=== PATIENT | female | born 1935 | race Caucasian/White ===

== ENCOUNTER 2016-07-14 14:40 | Inpatient (IN) | payer MEDICARE ==
[~2016-07-14] VITALS: Ht 154.9 cm; Wt 119.0 kg
[2016-07-15] MEDS ORDERED: CART180C PO (11:42)
[2016-07-15] MEDS ORDERED: ROSU1TAB8 PO (11:43)
[2016-07-15] MEDS ORDERED: LEVO25TA4 PO (11:43)
[2016-07-15] MEDS ORDERED: LATA0.002 EACH EYE (11:43)
[2016-07-15] MEDS ORDERED: TIMO0.5S30 LEFT EYE (11:43)
[2016-07-15] MEDS ORDERED: LISI10TA3 PO (11:43)
[2016-07-15] MEDS ORDERED: ASPI1TAB69 PO (11:43)
[2016-07-15] MEDS ORDERED: NITR0.4S SL (11:43)
[2016-07-25] MEDS ORDERED: LACTATED RINGER'S 1000 ML INJ 2,000 ML IV ONE (11:14)
[2016-07-25] MEDS ORDERED: SODIUM CHLOR 0.9% 250 ML INJ 250 ML IV ONE (11:14)
[2016-07-25] MEDS ORDERED: PHENYLEPH/NS 1000 MCG/10 ML SYR IV ONE (11:14)
[2016-07-25] MEDS ORDERED: PROPOFOL 200 MG/20 ML AMP IV ONE (11:14)
[2016-07-25] MEDS ORDERED: ePHEDrine/NS 25 MG/5 ML SYR IV ONE (11:14)
[2016-07-25] MEDS ORDERED: ceFAZolin INJ 1,000 MG VIAL ONE (11:44)
[2016-07-25] MEDS ORDERED: METOPROLOL TARTRATE 25 MG TAB PO PRN (11:45)
[2016-07-25] MEDS ORDERED: INSULIN HUMAN REGULAR 1,000 UNITS/10 ML VIAL SQ PRN (11:45)
[2016-07-25 12:00] VITALS: BP 144/66; PULSE 72; RESP 20; TEMP 97.7; O2SAT 98
[2016-07-25] MEDS: CHLORHEXIDINE GLUCONATE 4% SOLN 120 ML BTL TOP SCH (12:00)
[2016-07-25] MEDS ORDERED: ACETAMINOPHEN 1000 MG/100 ML VIAL IV ONE (12:00)
[2016-07-25] MEDS ORDERED: VANCOMYCIN 1000 MG/NS 250 ML (for <70 kg) IV SCH ×2 (12:00)
[2016-07-25] MEDS ORDERED: SODIUM CHLORID 0.9% 500 ML IV SCH (12:00)
[2016-07-25] MEDS ORDERED: LACTATED RINGER'S 1000 ML IV SCH (12:00)
[2016-07-25] MEDS ORDERED: CLINDAMYCIN 900 MG/NS 100 ML IV SCH ×2 (12:45)
[2016-07-25] MEDS ORDERED: SODIUM CHLORIDE 0.9% INJ 100 ML ONE (12:52)
[2016-07-25] MEDS ORDERED: GENTAMICIN SULFATE 80 MG/2 ML VIAL ONE (13:26)
[2016-07-25] MEDS ORDERED: MIDAZOLAM HCL 2 MG/2 ML VIAL ONE (13:39)
--- NOTE | 2016-07-25 16:52 | PD.OP ---
cc: Lee Gillespie MD Operative Report Date of Surgery: Jul 25, 2016 Preoperative Diagnosis: (1) Osteoarthritis of left hip Postoperative Diagnosis: (1) Osteoarthritis of left hip Procedure: Left total hip arthroplasty Implants used: Biomet Bi-Metric size 12 press-fit femoral component with a Agusto 52 press-fit acetabular shell and a 36 ceramic head with a standard neck length Anesthesia: Spinal Surgeon: Lee Gillespie Accountant Controller(s): Kristy De León PA-C ([place]) The surgical procedure was assisted by my physician's boiler assistant operator. Her presence was necessary throughout the case for manipulation and positioning of the surgical extremity. My PA was assisting me throughout the duration of this procedure. The skill set of the physician boiler assistant operator was medically necessary to complete this procedure. During the surgical case the surgical consultant was working at the back table and the physician boiler assistant operator was directly assisting me. Operation and Findings: Indications: This 81-year-old female has a long history of left hip and knee pain. It has been progressive. Her pain is primarily in the groin with radiation to the knee. X-rays reveal advanced osteoarthritis with [id number] opposition, subchondral sclerosis, subchondral cyst formation and osteophytes. She requires use of a cane or walker for ambulation. She is been unresponsive to nonoperative measures including attempts at weight loss, medication, and pool therapy. It is felt that her knee pain is referred from the hip. Given the alternatives of the treatment she presents for total hip arthroplasty. Procedure and findings: The patient was taken to the operative suite and after undergoing an adequate level of general anesthesia was placed in the lateral decubitus position on the operating table. Preoperative antibiotics consisted of vancomycin 1 g IV and clindamycin 900 mg IV. The left lower extremity was then prepped and draped in usual sterile fashion with alcohol and Hibiclens. A standard posterior lateral approach the hip was made with an incision centered over the greater trochanter. This was carried down to skin and subcutaneous tense tissue with a knife. Hemostasis was obtained with cautery. The iliotibial band was identified distally and the gluteus marcos fascia proximally. These were split longitudinally. This brought the greater trochanteric bursa into view which was partially excised. The short external rotators were released from the posterior aspect of the femur up to the level of the piriformis. This was tagged. The sciatic nerve was palpable in the depths of the wound and avoided. A T capsulotomy incision was made. A joint effusion was evacuated. The hip was then easily dislocated. She was noted to be marked degenerative changes with total obliteration of the articular cartilage. A neck cut was made utilizing an osteotomy guide. The head was then sized on the back table. The labrum was excised. Soft tissue was removed from the floor of the acetabulum. The acetabulum was then sequentially reamed up to a size 51 in approximately 45 of abduction and 25 of anteversion. A size 52 trial was seated and gave good fit and fill. This component was therefore selected. The wound was thoroughly irrigated with pulse lavage. The 52 acetabular cup was then impacted into place. It was recognized that the shell that was provided did not match the liner and therefore the cup was removed and the correct cup seated. The liner was then seated. Attention was then focused on the proximal femur which was sequentially reamed and broached up to a size 12. With the size [address] trial reductions were completed. The standard neck length gave the best range of motion and stability with equalization of limb lengths. These components were therefore selected. The wound was again thoroughly irrigated with pulse lavage. The size 12 Bi-Metric stem was then impacted in the place. The 36 ceramic head was then impacted onto the proximal aspect of the stem with a Huggins taper fit. Reduction was then accomplished and good range of motion, stability and equalization of limb lengths again noted. The wound was again thoroughly irrigated with pulse lavage. Hemovac drains were left in place. Incision was closed in layers utilizing #1 Tycron and #1 Vicryl on the posterior capsule, #1 Vicryl on the iliotibial band and gluteus Marcos fascia, 0 Vicryl suture on the deep tissue, 2-0 Vicryl suture and the subcutaneous tense tissue and fredis on the skin. Sterile dressings were applied, the patient was placed into an abduction pillow, awakened and transferred to the hospital bed. He was then taken to the recovery room in stable condition. Estimated blood loss: 250 cc Complications: None Lee Gillespie MD Jul 25, 2016 16:52
[2016-07-25] MEDS ORDERED: SODIUM CHLORIDE 0.9% FLUSH 5 ML FLUSH IVF PRN (17:00)
[2016-07-25] MEDS ORDERED: NALOXONE HCL 0.4 MG/ML AMP IV PRN (17:00)
[2016-07-25] MEDS ORDERED: BISACODYL 10 MG SUPP PR PRN (17:00)
[2016-07-25] MEDS ORDERED: diphenhydrAMINE HCL 25 MG CAP PO PRN (17:00)
[2016-07-25] MEDS ORDERED: ONDANSETRON HCL 4 MG/2 ML VIAL IVP PRN (17:00)
[2016-07-25] MEDS ORDERED: oxyCODONE/ACETAMINOPHEN 5 MG/325 MG TAB PO PRN (17:00)
[2016-07-25] MEDS ORDERED: MORPHINE SULFATE 30 MG/30 ML PCA IV SCH (17:00)
[2016-07-25] MEDS ORDERED: ALUMINUM/MAGNESIUM/SIMETH 30 ML CUP PO PRN (17:00)
[2016-07-25] MEDS ORDERED: MISCELLANEOUS NURSING INFORMATION XX PRN (17:00)
[2016-07-25] MEDS ORDERED: TEMAZEPAM 15 MG CAP PO PRN (17:00)
[2016-07-25] MEDS ORDERED: NITROGLYCERIN 0.4 MG SL 25 TABS/BTL SL PRN (17:00)
[2016-07-25] MEDS ORDERED: ACETAMINOPHEN 325 MG TAB PO PRN (17:00)
[2016-07-25] MEDS ORDERED: Post-op Orders (for Pharmacy) MISC XX ONE (17:00)
[2016-07-25] MEDS ORDERED: MORPHINE SULFATE 8 MG/ML INJ IV PUSH PRN (17:00)
[2016-07-25] MEDS ORDERED: POVIDONE IODINE 10% SOLN 118 ML BOTTLE TOPICAL PRN (17:00)
[2016-07-25] MEDS ORDERED: MISCELLANEOUS PHARMACY INFORMATION XX ONE (17:00)
[2016-07-25] MEDS ORDERED: DO NOT ADM ANY ANTICOAGULANT DRUGS XX PRN (17:03)
[2016-07-25] MEDS ORDERED: *morphine SULFATE 8 MG/ML PERIprocedure ONLY ONE (17:06)
[2016-07-25] MEDS ORDERED: ePHEDrine/NS 25 MG/5 ML SYR ONE (17:48)
--- NOTE | 2016-07-25 17:51 | RADRPT ---
EXAM DATE/TIME: 07/25/2016 17:14 [facility] COMPARISON: No previous studies available for comparison. INDICATIONS : Post op left hip arthroplasty. MEDICAL HISTORY : None. SURGICAL HISTORY : None. ENCOUNTER: Initial ACUITY: 1 day PAIN SCORE: Non-responsive. LOCATION: Left hip FINDINGS: Examination of the hip demonstrates total hip arthroplasty in satisfactory position. The alignment is anatomic. CONCLUSION: Post surgical changes as above. Octavio Esqueda MD on July 25, 2016 at 17:49 Board Certified Radiologist. This report was verified electronically.
--- NOTE | 2016-07-25 18:28 | PD.CONS ---
HPI Service [facility] Hospitalists Consult Requested By Dr. Gillespie Reason for Consult medical management Primary Care Physician Non-Staff Diagnoses: (1) Osteoarthritis of left hip (2) Hypotension History of Present Illness 81 y/o white female seen in post op still somewhat lethargic from anesthesia and is running low blood pressure on IV fluids alert and offers no compliants. Patient has history of hypertension,cad, hypothyroid ,hyperlipidemia. Patient for medical management. Review of Systems ROS Limitations: Altered Mental Status (due to post op) Past Family Social History Past Medical History cad,hypothyroid,hypertension,hyperlipidemia Past Surgical History left THR Reported Medications cardia,eye drops,levothyroxine,lisinopril,statin Allergies: Coded Allergies: Penicillin (Verified Allergy, Severe, Anaphylaxis, 07/25/16) Social History NS,ND Physical Exam Vital Signs Vital Signs Date Time Temp Pulse Resp B/P Pulse Ox O2 Delivery O2 Flow Rate FiO2 07/25/16 12:00 97.7 72 20 144/66 98 Physical Exam GENERAL: This is a well-nourished, well-developed patient, in no apparent distress. SKIN: No rashes, ecchymoses or lesions. Cool and dry. HEAD: Atraumatic. Normocephalic. No temporal or scalp tenderness. EYES: Pupils equal round and reactive. Extraocular motions intact. No scleral icterus. No injection or drainage. ENT: Nose without bleeding, purulent drainage or septal hematoma. Throat without erythema, tonsillar hypertrophy or exudate. Uvula midline. Airway patent. NECK: Trachea midline. No JVD or lymphadenopathy. Supple, nontender, no meningeal signs. CARDIOVASCULAR: Regular rate and rhythm without murmurs, gallops, or rubs. RESPIRATORY: Clear to auscultation. Breath sounds equal bilaterally. No wheezes , rales, or rhonchi. GASTROINTESTINAL: Abdomen soft, non-tender, nondistended. No hepato-splenomegaly , or palpable masses. No guarding. MUSCULOSKELETAL: S/P left total hip no edema NEUROLOGICAL: Awake and alert improving Cranial nerves II through XII intact. Motor and sensory grossly within normal limits. Five out of 5 muscle strength in all muscle groups. Normal speech developing. Laboratory Laboratory Tests Test 07/25/16 11:30 Blood Type A POSITIVE Antibody Screen NEGATIVE Blood Bank Comment Course post op on IV fluids and improving Assessment and Plan Problem List: (1) Osteoarthritis of left hip Status: Acute Plan: S/p surgery plan as per ortho , (2) Hypotension Status: Acute Plan: related to anesthesia and is improving with IV fluid once stable can be restarted on hypertensive meds lisinopril and cardia . Placed on parameters Assessment and Plan as above medical will follow Code Status full Discussed Condition With patient Cesar Florez MD Jul 25, 2016 18:28
[2016-07-25] MEDS ORDERED: ePHEDrine/NS 25 MG/5 ML SYR IV PUSH ONE ×2 (18:30→20:15)
[2016-07-25] MEDS ORDERED: *RESP: ALBUTEROL 2.5 MG/3 ML NEB (PRN) PERIprocedural Use ONLY NEB ONE (18:33)
[2016-07-25] MEDS: LACTATED RINGER'S 1000 ML INJ 1,000 ML IV SCH (18:56)
[2016-07-25 19:45] LABS: AUTOMATED NEUTROPHIL # 14.7 TH/MM3 (1.8-7.7); BASOPHIL # 0.1 TH/MM3 (0-0.2); BASOPHIL % 0.3 % (0.0-2.0); EOSINOPHIL # 0.1 TH/MM3 (0-0.4); EOSINOPHIL % 0.7 % (0.0-4.0); HEMATOCRIT 33.7 % (35.0-46.0); HEMO FLAGS DIFF FINAL; LYMPH % 9.1 % (9.0-44.0); LYMPHOCYTE # 1.6 TH/MM3 (1.0-4.8); MEAN CELL VOLUME 85.6 FL (80.0-100.0); MEAN CORPUSCULAR HEMOGLOBIN 27.8 PG (27.0-34.0); MEAN CORPUSCULAR HGB CONC 32.5 % (32.0-36.0); MONO % 4.7 % (0.0-8.0); NEUT % 85.2 % (16.0-70.0); PLATELET COUNT 177 TH/MM3 (150-450); RED BLOOD COUNT 3.93 MIL/MM3 (4.00-5.30); RED CELL DISTRIBUTION WIDTH 15.3 % (11.6-17.2); WHITE BLOOD COUNT 17.3 TH/MM3 (4.0-11.0)
[2016-07-25] MEDS: CLINDAMYCIN INJ 900 MG in SODIUM CHLORIDE 0.9% INJ 100 ML IV SCH (20:00)
[2016-07-25] MEDS: LATANOPROST 0.005% OPHT SOLN 2.5 ML BTL EACH EYE SCH (21:00)
[2016-07-25 22:00] VITALS: BP 113/48; PULSE 75; RESP 17; TEMP 96.2; O2SAT 100
[2016-07-26] VITALS (8 sets, daily range): BP systolic 114–143; BP diastolic 46–73; PULSE 73–95; RESP 16–18; TEMP 96.3–100.8; O2SAT 94–100
[2016-07-26] MEDS: CLINDAMYCIN INJ 900 MG in SODIUM CHLORIDE 0.9% INJ 100 ML IV SCH ×2 (04:00→13:53)
[2016-07-26 05:10] LABS: HEMATOCRIT 32.3 % (35.0-46.0); REVIEW FLAG FINAL
[2016-07-26] MEDS: PCA - TOTAL MG MORPHINE DELIVERED PER SHIFT SCH ×3 (06:00→22:00)
--- NOTE | 2016-07-26 06:44 | RADRPT ---
EXAM DATE/TIME: 07/26/2016 05:16 [facility] COMPARISON: No previous studies available for comparison. INDICATIONS : Short of breath MEDICAL HISTORY : Cardiovascular disease. SURGICAL HISTORY : Coronary artery stent. hip replacement ENCOUNTER: Subsequent ACUITY: 2 days PAIN SCORE: 0/10 LOCATION: Bilateral chest FINDINGS: No consolidation or effusion. Cardiomegaly. Aortic calcification. Degenerative changes of the spine. CONCLUSION: No acute disease. Demian Chow MD on July 26, 2016 at 6:43 Board Certified Radiologist. This report was verified electronically.
[2016-07-26] MEDS: DILTIAZEM-CD 180 MG CAP ER PO SCH (09:00)
[2016-07-26] MEDS: LISINOPRIL 10 MG TAB PO SCH (09:00)
[2016-07-26] MEDS: LEVOTHYROXINE SODIUM 25 MCG TAB PO SCH (10:27)
[2016-07-26] MEDS: SODIUM CHLORIDE 0.9% FLUSH 5 ML FLUSH IVF SCH ×2 (10:30→22:15)
[2016-07-26] MEDS: ATORVASTATIN 40 MG TAB PO SCH (10:31)
--- NOTE | 2016-07-26 12:51 | PD.ORT.PN ---
Subjective Post Op Day #: 1 Subjective Remarks Pt laying comfortably in bed, awake and answering questions appropriately. She admits her left hip pain is well under control and admits to occasional 'burning '. She admits she slept well. No other complaints noted. Objective Vitals Vital Signs Date Time Temp Pulse Resp B/P Pulse Ox O2 Delivery O2 Flow Rate FiO2 07/26/16 12:00 98.4 79 18 127/47 98 07/26/16 08:00 98.0 84 18 120/51 100 07/26/16 06:00 18 07/26/16 04:00 97.8 89 16 124/59 100 07/26/16 00:00 96.3 73 17 114/53 99 07/25/16 22:00 96.2 75 17 113/48 100 07/25/16 20:30 97.4 69 15 111/58 98 Nasal Cannula 3 07/25/16 20:15 71 15 114/56 98 Nasal Cannula 3 07/25/16 20:00 71 16 118/55 98 Nasal Cannula 3 07/25/16 19:45 74 15 100/50 98 Nasal Cannula 3 07/25/16 19:30 85 15 122/58 98 Nasal Cannula 3 07/25/16 19:28 73 16 128/55 98 Nasal Cannula 3 07/25/16 19:18 65 16 95/49 99 Nasal Cannula 3 07/25/16 19:15 61 15 73/46 99 Nasal Cannula 3 07/25/16 19:00 67 15 95/49 99 Nasal Cannula 3 07/25/16 18:57 15 07/25/16 18:45 65 15 95/56 99 Nasal Cannula 3 07/25/16 18:30 75 15 100/48 97 Nasal Cannula 3 07/25/16 18:15 67 15 112/55 97 Nasal Cannula 3 07/25/16 18:00 69 16 109/50 97 Nasal Cannula 3 07/25/16 17:55 75 14 125/54 98 Nasal Cannula 3 07/25/16 17:51 63 14 108/53 98 Nasal Cannula 3 07/25/16 17:48 63 15 96/51 98 Nasal Cannula 3 07/25/16 17:45 62 16 73/25 96 Nasal Cannula 3 07/25/16 17:30 62 16 100/52 96 Nasal Cannula 3 07/25/16 17:15 59 14 159/107 96 Nasal Cannula 3 07/25/16 17:00 97.4 75 14 159/123 96 Nasal Cannula 3 I/O 07/25/16 07/25/16 07/25/16 07/26/16 07/26/16 07/26/16 07:00 15:00 23:00 07:00 15:00 23:00 Intake Total 3200 ml 240 ml Output Total 905 ml 550 ml Balance 2295 ml -310 ml Intake Oral 240 ml IV Total 1200 ml Other 2000 ml Output Urine Total 475 ml 550 ml Drainage Total 230 ml Estimated Blood Loss 200 ml # Voids 1 # Bowel Movements 0 Result Diagram: 07/26/16 0454 Imaging Last 48 hours Impressions Chest X-Ray 07/26/16 0600 Signed Impressions: Service Date/Time: Tuesday, July 26, 2016 05:16 - CONCLUSION: No acute disease. Demian Chow MD Hip X-Ray 07/25/16 0000 Signed Impressions: Service Date/Time: Monday, July 25, 2016 17:14 - CONCLUSION: Post surgical changes as above. Octavio Esqueda MD Procedures Left Total Hip Arthroplasty (07/25/16) Objective Remarks LLE: Dressing dry and intact. Mild tenderness and swelling over incision site. No erythema or ecchymosis noted. Skin is warm. She is able to move her ankle and toes freely. Good cap refill. No calf pain. Negative Matt's sign. Neurovascular intact. Abductor pillow in place. Assessment & Plan Ortho Post Op Day #: 1 Problem List: (1) Status post total hip replacement, left (2) Osteoarthritis of left hip Assessment and Plan Ortho status stable POD #1. Progress rehabilitation. Continue Lovenox for DVT prophylaxis, pain management and bowel regimen. Discharge planning. Kristy De León Jul 26, 2016 12:50
[2016-07-26] MEDS: LACTATED RINGER'S 1000 ML INJ 1,000 ML IV SCH ×2 (12:52→22:16)
[2016-07-26] MEDS: TIMOLOL MALEATE 0.5% OPHT SOLN 5 ML BTL LEFT EYE SCH (13:54)
[2016-07-26] MEDS: ENOXAPARIN SODIUM 40 MG/0.4 ML SYRINGE SQ SCH (16:31)
--- NOTE | 2016-07-26 17:06 | EKG ---
Date Performed: 07/25/2016 Time Performed: 11:41:22 PTAGE: 81 years EKG: Sinus rhythm LOW QRS VOLTAGE IN PRECORDIAL LEADS INFERIOR MYOCARDIAL INFARCTION , PROBABLY OLD ABNORMAL ECG NO PREVIOUS TRACING DOCTOR: Mikal Harris Interpretating Date/Time 07/26/2016 17:02:34
[2016-07-26] MEDS: MULTIVITAMINS/MINERALS THERAPEUTIC TAB PO SCH (22:14)
[2016-07-26] MEDS: DOCUSATE SODIUM 100 MG CAP PO SCH (22:14)
[2016-07-27] VITALS (8 sets, daily range): BP systolic 126–142; BP diastolic 56–65; PULSE 88–109; RESP 16–20; TEMP 96.1–100.1; O2SAT 93–97
[2016-07-27] MEDS: PCA - TOTAL MG MORPHINE DELIVERED PER SHIFT SCH ×3 (06:00→22:00)
[2016-07-27] MEDS: LEVOTHYROXINE SODIUM 25 MCG TAB PO SCH (06:25)
[2016-07-27] MEDS ORDERED: ENOX40P SQ (07:53)
[2016-07-27] MEDS ORDERED: OXYC1TAB63 PO (07:54)
--- NOTE | 2016-07-27 08:03 | PD.ORT.PN ---
Subjective Post Op Day #: 2 Subjective Remarks Pt laying comfortably in bed, awake and answering questions appropriately. She admits her left hip pain is well under control. She admits she was not able to walk with physical therapy yesterday due to blood pressure fluctuations - she will try again today. No other complaints noted. Objective Vitals Vital Signs Date Time Temp Pulse Resp B/P Pulse Ox O2 Delivery O2 Flow Rate FiO2 07/27/16 06:00 18 07/27/16 04:20 100.1 100 18 142/62 97 07/27/16 00:22 100.1 88 20 139/56 97 07/26/16 22:00 18 07/26/16 20:12 100.3 95 18 129/46 100 07/26/16 16:00 100.8 95 18 143/73 100 07/26/16 15:24 98 Nasal Cannula 3.00 07/26/16 14:00 18 07/26/16 12:00 98.4 79 18 127/47 98 07/26/16 09:30 94 Nasal Cannula 3.00 I/O 07/26/16 07/26/16 07/26/16 07/27/16 07/27/16 07/27/16 07:00 15:00 23:00 07:00 15:00 23:00 Intake Total 240 ml 1372 ml 740 ml Output Total 550 ml 100 ml 800 ml Balance -310 ml 1372 ml -100 ml -60 ml Intake Oral 240 ml 1100 ml 740 ml IV Total 272 ml Output Urine Total 550 ml 800 ml Drainage Total 100 ml # Voids 3 # Bowel Movements 0 0 Result Diagram: 07/26/16 0454 Imaging Last 48 hours Impressions Chest X-Ray 07/26/16 0600 Signed Impressions: Service Date/Time: Tuesday, July 26, 2016 05:16 - CONCLUSION: No acute disease. Demian Chow MD Hip X-Ray 07/25/16 0000 Signed Impressions: Service Date/Time: Monday, July 25, 2016 17:14 - CONCLUSION: Post surgical changes as above. Octavio Esqueda MD Procedures Left Total Hip Arthroplasty (07/25/16) Objective Remarks LLE: Dressing dry and intact. Mild tenderness and swelling over incision site. No erythema or ecchymosis noted. Skin is warm. She is able to move her ankle and toes freely. Good cap refill. No calf pain. Negative Matt's sign. Neurovascular intact. Abductor pillow in place. Bloody fluid in drain Assessment & Plan Ortho Post Op Day #: 2 Problem List: (1) Status post total hip replacement, left (2) Osteoarthritis of left hip Assessment and Plan Ortho status stable POD #2. Progress rehabilitation. Change dressings and remove drain today. Continue Lovenox for DVT prophylaxis, pain management and bowel regimen. Discharge planning. Kristy De León Jul 27, 2016 08:03
[2016-07-27] MEDS: LISINOPRIL 10 MG TAB PO SCH (09:00)
[2016-07-27] MEDS: DILTIAZEM-CD 180 MG CAP ER PO SCH (09:00)
[2016-07-27] MEDS: DOCUSATE SODIUM 100 MG CAP PO SCH ×2 (10:26→23:46)
[2016-07-27] MEDS: ATORVASTATIN 40 MG TAB PO SCH (10:26)
[2016-07-27] MEDS: MULTIVITAMINS/MINERALS THERAPEUTIC TAB PO SCH ×2 (10:27→23:46)
[2016-07-27] MEDS: SODIUM CHLORIDE 0.9% FLUSH 5 ML FLUSH IVF SCH ×2 (10:28→23:48)
[2016-07-27] MEDS: TIMOLOL MALEATE 0.5% OPHT SOLN 5 ML BTL LEFT EYE SCH (10:28)
[2016-07-27] MEDS: LACTATED RINGER'S 1000 ML INJ 1,000 ML IV SCH ×2 (10:31→18:52)
[2016-07-27] MEDS: oxyCODONE/ACETAMINOPHEN 5 MG/325 MG TAB PO PRN (10:38)
[2016-07-27] MEDS: CHLORHEXIDINE GLUCONATE 4% SOLN 120 ML BTL TOP SCH (12:00)
[2016-07-27] MEDS: ENOXAPARIN SODIUM 40 MG/0.4 ML SYRINGE SQ SCH (17:36)
[2016-07-27] MEDS: LATANOPROST 0.005% OPHT SOLN 2.5 ML BTL EACH EYE SCH ×2 (21:00→23:49)
[2016-07-28] VITALS: BP 120/50; PULSE 91; RESP 20; TEMP 98.1; O2SAT 97
[2016-07-28 04:00] VITALS: BP 118/55; PULSE 92; RESP 20; TEMP 99.2; O2SAT 97
[2016-07-28] MEDS: LACTATED RINGER'S 1000 ML INJ 1,000 ML IV SCH ×2 (04:52→14:06)
[2016-07-28] MEDS: PCA - TOTAL MG MORPHINE DELIVERED PER SHIFT SCH ×2 (06:00→14:00)
[2016-07-28] MEDS: LEVOTHYROXINE SODIUM 25 MCG TAB PO SCH (06:06)
--- NOTE | 2016-07-28 07:03 | PD.ORT.PN ---
Subjective Post Op Day #: 3 Subjective Remarks Pt laying comfortably in bed, awake and answering questions appropriately. She admits her left hip pain is well under control. She admits she walked with physical therapy yesterday. She is ready to go to rehab today. No other complaints noted. Objective Vitals Vital Signs Date Time Temp Pulse Resp B/P Pulse Ox O2 Delivery O2 Flow Rate FiO2 07/28/16 04:00 99.2 92 20 118/55 97 07/28/16 00:00 98.1 91 20 120/50 97 07/27/16 20:38 97.3 104 16 129/60 94 07/27/16 18:35 21 07/27/16 16:45 96.4 109 18 126/60 93 07/27/16 14:00 18 07/27/16 12:00 96.1 92 16 139/65 93 07/27/16 10:03 92 135/62 97 07/27/16 09:07 95 21 07/27/16 08:02 98.3 90 17 128/56 97 I/O 07/27/16 07/27/16 07/27/16 07/28/16 07/28/16 07/28/16 07:00 15:00 23:00 07:00 15:00 23:00 Intake Total 740 ml 712 ml 480 ml 220 ml Output Total 820 ml 70 ml Balance -80 ml 712 ml 410 ml 220 ml Intake Oral 740 ml 480 ml 480 ml 220 ml IV Total 232 ml Output Urine Total 800 ml Drainage Total 20 ml 70 ml # Voids 3 3 2 1 # Bowel Movements 0 0 0 Result Diagram: 07/26/16 0454 Imaging Last 48 hours Impressions Chest X-Ray 07/26/16 0600 Signed Impressions: Service Date/Time: Tuesday, July 26, 2016 05:16 - CONCLUSION: No acute disease. Demian Chow MD Hip X-Ray 07/25/16 0000 Signed Impressions: Service Date/Time: Monday, July 25, 2016 17:14 - CONCLUSION: Post surgical changes as above. Octavio Esqueda MD Procedures Left Total Hip Arthroplasty (07/25/16) Objective Remarks LLE: Dressing dry and intact. Mild tenderness and swelling over incision site. No erythema or ecchymosis noted. Skin is warm. She is able to move her ankle and toes freely. Good cap refill. No calf pain. Negative Matt's sign. Neurovascular intact. Abductor pillow in place. Assessment & Plan Ortho Post Op Day #: 3 Problem List: (1) Status post total hip replacement, left (2) Osteoarthritis of left hip Assessment and Plan Ortho status stable POD #3. Progress rehabilitation. Continue Lovenox for DVT prophylaxis, pain management and bowel regimen. Discharge planning - most likely to rehab center today. Kristy De León Jul 28, 2016 07:03
--- NOTE | 2016-07-28 07:23 | HHI.DS ---
Discharge Summary Admission Date Jul 25, 2016 at 10:39 Discharge Date: Jul 28, 2016 Admitting Diagnosis Left hip Osteoarthritis, s/p L JOSIE Diagnosis: (1) Status post total hip replacement, left Diagnosis: Principal (2) Osteoarthritis of left hip Diagnosis: Principal Procedures Left Total Hip Arthroplasty (07/25/16) Brief History This is a 81 year old female patient who has had greater than 6 months of left hip pain due to advanced osteoarthritis. She failed several attempts at conservative care in an outpatient clinical setting including anti- inflammatories, therapy and weight loss. She had pain with ambulation and pain at night. She ambulated with a cane before surgery. It recommended to proceed with surgical treatment at this point. Pt presented to the hospital for L total hip arthroplasty. CBC/BMP: 07/26/16 0454 Significant Findings Laboratory Tests Test 07/25/16 07/26/16 19:15 04:54 White Blood Count 17.3 TH/MM3 (4.0-11.0) Red Blood Count 3.93 MIL/MM3 (4.00-5.30) Hemoglobin 10.9 GM/DL 10.7 GM/DL (11.6-15.3) (11.6-15.3) Hematocrit 33.7 % 32.3 % (35.0-46.0) (35.0-46.0) Neutrophils (%) (Auto) 85.2 % (16.0-70.0) Neutrophils # (Auto) 14.7 TH/MM3 (1.8-7.7) Imaging Last Impressions Chest X-Ray 07/26/16 0600 Signed Impressions: Service Date/Time: Tuesday, July 26, 2016 05:16 - CONCLUSION: No acute disease. Demian Chow MD Hip X-Ray 07/25/16 0000 Signed Impressions: Service Date/Time: Monday, July 25, 2016 17:14 - CONCLUSION: Post surgical changes as above. Octavio Esqueda MD PE at Discharge LLE: Dressing dry and intact. Mild tenderness and swelling over incision site. No erythema or ecchymosis noted. Skin is warm. She is able to move her ankle and toes freely. Good cap refill. No calf pain. Negative Matt's sign. Neurovascular intact. Abductor pillow in place. Hospital Course Pt presented to [facility] for left total hip arthroplasty. She was evaluated at same day surgery and proceeded forward with surgical course. Details of left total hip arthroplasty can be reviewed in operative note. Patient was given antibiotics before surgical procedure and after via IV medication. She was seen by physical therapy during her hospital stay. DVT prophylaxis was initiated with SCDs and Lovenox. Pt will be discharged in good condition. She is to be discharged to rehab center for continued care. Pt Condition on Discharge: Good Discharge Disposition: Rehab Inpatient Discharge Instructions Diet Instructions: As Tolerated, No Restrictions, High Fiber Diet Activities You Can Perform: Weight Bearing as Allyson Activities to Avoid: Lifting/Bending Kristy De León Jul 28, 2016 07:23
[2016-07-28] MEDS ORDERED: WALKER/ADULT/FO1 MIS (07:29)
[2016-07-28] MEDS ORDERED: MISC-163 (07:29)
[2016-07-28 08:05] VITALS: BP 117/55; PULSE 87; RESP 16; TEMP 96.3; O2SAT 98
[2016-07-28] MEDS: SODIUM CHLORIDE 0.9% FLUSH 5 ML FLUSH IVF SCH (09:07)
[2016-07-28] MEDS: TIMOLOL MALEATE 0.5% OPHT SOLN 5 ML BTL LEFT EYE SCH (09:07)
[2016-07-28] MEDS: LISINOPRIL 10 MG TAB PO SCH (09:08)
[2016-07-28] MEDS: DILTIAZEM-CD 180 MG CAP ER PO SCH (09:08)
[2016-07-28] MEDS: DOCUSATE SODIUM 100 MG CAP PO SCH (09:09)
[2016-07-28] MEDS: MAGNESIUM HYDROXIDE SUSP 30 ML CUP PO PRN ×2 (09:09→14:29)
[2016-07-28] MEDS: oxyCODONE/ACETAMINOPHEN 5 MG/325 MG TAB PO PRN ×2 (09:10→17:24)
[2016-07-28] MEDS: ATORVASTATIN 40 MG TAB PO SCH (09:10)
[2016-07-28] MEDS: MULTIVITAMINS/MINERALS THERAPEUTIC TAB PO SCH (09:10)
[2016-07-28 12:00] VITALS: BP 101/51; PULSE 88; RESP 16; TEMP 97.8; O2SAT 93
[2016-07-28] MEDS: ENOXAPARIN SODIUM 40 MG/0.4 ML SYRINGE SQ SCH (15:19)
[2016-07-28 16:10] VITALS: BP 144/63; PULSE 98; RESP 17; TEMP 97.6; O2SAT 92
== END 2016-07-28 19:48 | DRG 470 ==
LOC: HSDI 07-25 10:39 → N06B 07-25 20:40
PROVIDERS: ADMIT Orthopaedic Surgery Sports Medicine; ATTEND Orthopaedic Surgery Sports Medicine
PROC: 0SRB03Z Replacement of Left Hip Joint with Ceramic Synthetic Substitute, Open Approach (ICD-10-PCS; principal; 2016-07-25 14:03)
DX: M16.12 Unilateral primary osteoarthritis, left hip (principal); I95.9 Hypotension, unspecified; Z68.42 Body mass index [BMI] 45.0-49.9, adult; I25.10 Atherosclerotic heart disease of native coronary artery without angina pectoris; E78.5 Hyperlipidemia, unspecified; E03.9 Hypothyroidism, unspecified; M25.752 Osteophyte, left hip; I25.2 Old myocardial infarction; E66.9 Obesity, unspecified; I12.9 Hypertensive chronic kidney disease with stage 1 through stage 4 chronic kidney disease, or unspecified chronic kidney disease; N18.3 Chronic kidney disease, stage 3 (moderate); Z86.711 Personal history of pulmonary embolism; Z87.891 Personal history of nicotine dependence; Z95.5 Presence of coronary angioplasty implant and graft
CPT/HCPCS: 71010; 73501; 85014; 85018; 85025; 86850; 86900; 86901; 93005; 94150; 94664; C1776; J0131; J0690; J1580; J1650; J2250; J2270; J2370; J3370; J7050; J7120; J7613

== ENCOUNTER → 2016-07-15 | Outpatient (CLI) | payer MEDICARE ==
[~2016-07-15] MED LIST: ASPI1TAB69 PO; CART180C PO; ENOX40P SQ; LATA0.002 EACH EYE; LEVO25TA4 PO; LISI10TA3 PO; MISC-163; NITR0.4S SL; OXYC1TAB63 PO; ROSU1TAB8 PO; TIMO0.5S30 LEFT EYE; WALKER/ADULT/FO1 MIS
[2016-07-15 15:21] LABS: MRSA PCR NEGATIVE (NEGATIVE); STAPH AUREUS PCR NEGATIVE (NEGATIVE)
== END ==
LOC: CPRE 11:25
PROVIDERS: ATTEND Orthopaedic Surgery Sports Medicine
DX: Z13.9 Encounter for screening, unspecified (principal)
CPT/HCPCS: 87640; 87641